=== PATIENT | female | born 1950 | race Caucasian/White ===

== ENCOUNTER → 2016-08-20 | Outpatient (CLI) | payer MEDICARE ==
[2016-08-20 11:55] LABS: Blood Urea Nitrogen 20 mg/dL (7-17); Non-African American GFR(MDRD) >60 (>60 ml/min/1.73 sqM)
--- NOTE | 2016-08-20 13:21 | CT ---
EXAMINATION TYPE: CT chest w con DATE OF EXAM: 08/20/2016 1:03 PM COMPARISON: NONE HISTORY: Cough CT DLP: 585 mGycm Automated exposure control for dose reduction was used. CONTRAST: CT scan of the chest is performed with IV Contrast, patient injected with 100 mL of Omnipaque 300. FINDINGS: There is some scarring within the right middle lobe. There is mild atelectatic change at th e lung bases. There is 2.1 x 0.9 x 1.3 cm masslike density in the lateral basal segment of the left l ower lobe. There is no significant axillary, internal mammary, mediastinal or hilar adenopathy. There is no pleu ral or pericardial fluid. The heart is not enlarged. Within the abdomen, there is mild fatty infiltration of the liver. Visualized portions of the upper a bdomen are otherwise unremarkable. There is dextroscoliosis present. There is degenerative disc disease and hypertrophic spondylosis wit hin the dorsal spine. IMPRESSION: 1. 2.1 CM MASSLIKE DENSITY IN THE LATERAL BASAL SEGMENT OF THE LEFT LOWER LOBE. THIS MAY REPRESENT CO NSOLIDATION. FOLLOW-UP TO RESOLUTION WOULD BE SUGGESTED. 2. MILD FATTY INFILTRATION OF THE LIVER. 3. DEXTROSCOLIOSIS AND DEGENERATIVE CHANGES WITHIN THE SPINE.
== END | disposition home or self-care (01) ==
LOC: RADCTMAIN 10:56
PROVIDERS: ATTEND Family Medicine
DX: J98.4 Other disorders of lung (principal)
CPT/HCPCS: 82565; 84520; 71260; 36415; Q9967

== ENCOUNTER → 2016-10-15 | Outpatient (CLI) | payer MEDICARE ==
[2016-10-15 10:50] LABS: Blood Urea Nitrogen 26 mg/dL (7-17); Non-African American GFR(MDRD) >60 (>60 ml/min/1.73 sqM)
--- NOTE | 2016-10-15 11:30 | CT ---
EXAMINATION TYPE: CT chest w con DATE OF EXAM: 10/15/2016 11:14 AM COMPARISON: 08/20/2016 HISTORY: Previous abnormal exam of lung mckeon CT DLP: 314.10 mGycm, Automated exposure control for dose reduction was used. CONTRAST: Performed injected with 100 ml mL of Omnipaque 300. TECHNIQUE: Axial images were obtained at 5 mm thick sections. Reconstructed images are reviewed on [employer] computer in the coronal plane. FINDINGS: Portion of the thyroid visualized is normal. A 0.7 cm nodule may be at the posterior lateral left lung base. Series 4 image 40. Atelectasis could be considered within the differential. This area was present in August 2016. No enlarged mediastinal or hilar adenopathy is evident. The ascending aorta diameter at the level o f the main pulmonary artery is 3.8 cm. The main pulmonary artery diameter at the bifurcation is 2.[address] sections are obtained through the upper abdomen. Abdomen is essentially unremarkable. There is a scoliosis present. IMPRESSIONS: 1. 0.7 cm nodule suspected at the posterior lateral left lung base was present in August 2016. No i nterval increase in size is evident. Continued monitoring is recommended. Neoplasm is not excluded. F ollow-up CT chest study in 3 months is recommended.
== END | disposition home or self-care (01) ==
LOC: RADCTMAIN 10:02
PROVIDERS: ATTEND Family Medicine
DX: R91.8 Other nonspecific abnormal finding of lung field (principal)
CPT/HCPCS: 82565; 84520; 71260; 36415; Q9967

== ENCOUNTER → 2017-01-16 | Outpatient (CLI) | payer MEDICARE ==
--- NOTE | 2017-01-16 16:15 | PE ---
EXAMINATION TYPE: PET CT fusion skull to thigh DATE OF EXAM: 01/16/2017 CLINICAL HISTORY: Solitary pulmonary nodule, recent abnormal CT. TECHNIQUE: Following the intravenous administration of 13.1 mCi of F-18 FDG, whole body images are performed from the skull base to the midthigh. Images are reviewed on the computer in the coronal, a xial, and sagittal planes. Reconstructed rotating images are created on independent workstation and reviewed on the computer. A non-contrast CT is performed in conjunction with the PET scan. COMPARISON: CT chest October 15, 2016. CT abdomen pelvis October 23, 2015 FINDINGS: SKULL BASE AND NECK: No suspicious hypermetabolic uptake in the neck is seen. CHEST, MEDIASTINUM, AND HILAR REGION: No suspicious hypermetabolic uptake in the thorax with particul ar attention to the slightly more prominent rounded subcentimeter nodular area left lung base at site of linear scarring or atelectasis in the left lower lobe on axial image 103. ABDOMEN AND PELVIS: There is focal increased uptake in right-sided colon Could reflect inflammatory o r infectious process at this level. No suspicious wall thickening is seen. Consider colonoscopy corre lation if has not been performed in last 3 years due to asymmetric hypermetabolic uptake to exclude p olyp if there is no infectious or inflammatory correlate. Otherwise no suspicious hypermetabolic upta ke is seen in the abdomen or pelvis. Normal-appearing appendix incidentally noted. OSSEOUS STRUCTURES: No suspicious hypermetabolic uptake is seen in osseous structures. OTHER CT: There is mild diffuse age-related cerebral atrophy in the visualized inferior brain parenchyma. Slightly more prominent right axillary lymph nodes with mild hypermetabolic uptake are subcentimeter in size with retained fatty hilum, correlate for inflammatory process or infection at this level. Pectus excavatum deformity is redemonstrated. Ascending aorta measures up to 3.7 cm in diameter on axial image 88 unchanged from prior study. Mild cardiomegaly is redemonstrated. There are diverticula scattered throughout the visualized colon. There is small to moderate-sized fat-containing left periumbilical hernia on axial image 158 redemons trated. Underlying S-shaped scoliosis is redemonstrated. Straightening of spine is seen on sagittal images. Multilevel spurring and disc space narrowing is redemonstrated. IMPRESSION: No suspicious hypermetabolic uptake is seen to suggest pulmonary malignancy. Attention to right axilla and right colon as detailed above.
== END | disposition home or self-care (01) ==
LOC: RADPETMAIN 10:16
PROVIDERS: ATTEND Family Medicine
DX: R91.1 Solitary pulmonary nodule (principal)
CPT/HCPCS: 78815; A9552

== ENCOUNTER → 2018-04-28 | Outpatient (CLI) | payer MEDICARE ==
--- NOTE | 2018-04-28 10:00 | CT ---
EXAMINATION TYPE: CT chest w con DATE OF EXAM: 04/28/2018 COMPARISON: 10/15/2016 and August 20, 2015 HISTORY: Follow up known lung nodule. CT DLP: 353.8 mGycm Automated exposure control for dose reduction was used. CONTRAST: CT scan of the chest is performed with IV Contrast, patient injected with 80 mL of Isovue 300. FINDINGS: LUNGS: Stable left lower lobe nodular density measuring 6.6 mm versus 6.6 mm previously. Linear paren chymal scarring at the lung bases bilaterally. MEDIASTINUM: There are no greater than 1 cm hilar or mediastinal lymph nodes. No pericardial effusi on is seen. Thoracic aorta is of normal caliber. The heart is not enlarged. UPPER ABDOMEN: Fatty hepatic infiltration is noted. OTHER: No additional significant abnormality is seen. IMPRESSION: 1 stable left lower lobe pulmonary nodule over a two-year timeframe and can be presumed to be benign.
== END | disposition home or self-care (01) ==
LOC: RADCTMAIN 07:58
PROVIDERS: ATTEND Family Medicine
DX: R91.1 Solitary pulmonary nodule (principal)
CPT/HCPCS: 82565; 84520; 71260; 36415; Q9967

== ENCOUNTER → 2021-02-24 | Outpatient (CLI) | payer MEDICARE ==
[2021-02-24 13:01] LABS: HCT 42.5 % (34.0-46.0); HGB 14.1 gm/dL (11.4-16.0); MCH 32.5 pg (25.0-35.0); MCHC 33.1 g/dL (31.0-37.0); MCV 98.2 fL (80.0-100.0); Macrocytosis Slight; Mean Platelet Volume 8.3; Platelet Count 269 k/uL (150-450); RBC 4.33 m/uL (3.80-5.40); RDW 15.5 % (11.5-15.5)
[2021-02-24 13:29] LABS: Potassium 5.1 mmol/L (3.5-5.1)
== END | disposition home or self-care (01) ==
LOC: LABPAT 12:08
PROVIDERS: ATTEND Internal Medicine Interventional Cardiology
DX: Z01.812 Encounter for preprocedural laboratory examination (principal); I25.2 Old myocardial infarction
CPT/HCPCS: 36415; 80051; 82565; 84520; 85027

== ENCOUNTER 2021-03-03 11:07 | Day surgery (SDC) | payer MEDICARE ==
[2021-02-26 11:59] VITALS: BMI 29.2
[2021-03-03] MEDS ORDERED: SODIUM CHLORIDE 0.9% 1,000 ML in EMPTY BAG 1 BAG IV ONE (11:19)
[2021-03-03] MEDS ORDERED: ASPIRIN 325 MG TAB PO STA (11:19)
[2021-03-03] MEDS ORDERED: HEPARIN SODIUM,PORCINE 10,000 UNIT in SODIUM CHLORIDE 0.9% 1,000 ML IRRIGATION PRN (11:19)
[2021-03-03] MEDS ORDERED: HEPARIN SODIUM,PORCINE 2,500 UNIT in SODIUM CHLORIDE 0.9% 250 ML IRRIGATION PRN (11:19)
[2021-03-03] MEDS ORDERED: NITROGLYCERIN SL TABS 0.4 MG TAB SUBLINGUAL PRN (11:19)
[2021-03-03] MEDS ORDERED: ATORVASTATIN 80 MG TAB PO STA (11:19)
[2021-03-03] MEDS ORDERED: ALPRAZolam 0.5 MG TAB PO PRN (11:19)
[2021-03-03] MEDS ORDERED: ALPRAZolam 0.25 MG TAB PO PRN (11:19)
[2021-03-03] MEDS ORDERED: SODIUM CHLORIDE 0.9% 1,000 ML IV ONE (11:26)
[2021-03-03 11:33] VITALS: RESP 16; TEMP 98.4
[2021-03-03] MEDS ORDERED: HEPARIN SODIUM 1,000 UN/ML (10ML VL) ONE (12:16)
[2021-03-03] MEDS ORDERED: VERAPAMIL 2.5 MG/ML 2 ML AMP ONE (12:16)
[2021-03-03] MEDS ORDERED: LIDOCAINE 1% INJ 10MG/ML (20 ML MDV) ONE (12:16)
[2021-03-03] MEDS: MIDAZOLAM 2 MG/2 ML VIAL IVP ONE ×2 (12:33→12:35)
[2021-03-03] MEDS ORDERED: LIDOCAINE 1% INJ 10MG/ML (20 ML MDV) SQ ONE (12:34)
[2021-03-03] MEDS ORDERED: VERAPAMIL SYRINGE (5 MG/10 ML) INTRAARTER ONE (12:36)
[2021-03-03] MEDS ORDERED: HEPARIN SODIUM 1,000 UN/ML (10ML VL) IV ONE (12:40)
--- NOTE | 2021-03-03 12:55 | ECHOF ---
Referral Reason:aortic stenosis and high right pressures. MEASUREMENTS -------- HEIGHT: 152.4 cm WEIGHT: 68.0 kg BP: IVSd: 1.6 cm (0.6 - 1.1) LVIDd: 3.4 cm (3.9 - 5.3) LVPWd: 1.4 cm (0.6 - 1.1) EDV(Teich): 47 ml IVSs: 1.8 cm LVIDs: 2.1 cm LVPWs: 2.1 cm %IVS Thck: 11 % ESV(Teich): 15 ml EF(Teich): 68 % %FS: 37 % SV(Teich): 32 ml RVIDd: 3.3 cm (< 3.3) RA Diam: 4.1 cm LALs A4C: 5.0 cm LAAs A4C: 16.2 cm LAESV A-L A4C: 45 ml LAESV MOD A4C: 40 ml LALs A2C: 4.9 cm LAAs A2C: 17.6 cm LAESV A-L A2C: 54 ml LAESV MOD A2C: 51 ml LAESV(A-L): 50 ml LAESV Index (A-L): 30.14 ml/m Ao Diam: 2.9 cm (2.0 - 3.7) AV Cusp: 0.9 cm (1.5 - 2.6) MV E [place]: 0.59 m/s MV DecT: 210 ms MV Dec [place]: 2.8 m/s MV A [place]: 0.94 m/s MV E/A Ratio: 0.63 MV PHT: 61 ms LVOT Vmax: 0.88 m/s LVOT maxP.11 mmHg AV Vmax: 4.58 m/s AV maxP.92 mmHg AV Vmax: 4.67 m/s AV Vmean: 3.60 m/s AV maxP.54 mmHg AV meanP.03 mmHg AV Env.Ti: 349 ms AV VTI: 125.4 cm TR Vmax: 2.79 m/s TR maxP.17 mmHg RAP: 5.00 mmHg RVSP: 36.17 mmHg FINDINGS -------- Sinus rhythm. This was a technically adequate study. The left ventricular size is normal. There is moderate concentric left ventricular hypertrophy. O verall left ventricular systolic function is normal with, an EF between 55 - 60 %. The right ventricle is mildly enlarged. LA is midly dilated 29-33ml/m2. The right atrial size is normal. Interatrial and interventricular septum intact. Trace amount of aortic regurgitation. There is severe aortic stenosis present. Peak/mean gradien t across the Aortic Valve is 87.54mmHg / 56.03mmHg. There is trace mitral regurgitation. Mild tricuspid regurgitation present. There is mild pulmonary hypertension. The right ventricular systolic pressure, as measured by Doppler, is 36.17mmHg. There is no pulmonic regurgitation present. The aortic root size is normal. IVC Not well visulized. There is no pericardial effusion. TDS CONCLUSIONS -------- 1. The left ventricular size is normal. 2. There is moderate concentric left ventricular hypertrophy. 3. Overall left ventricular systolic function is normal with, an EF between 55 - 60 %. 4. The right ventricle is mildly enlarged. 5. LA is midly dilated 29-33ml/m2. 6. Trace amount of aortic regurgitation. 7. There is severe aortic stenosis present. 8. Peak/mean gradient across the Aortic Valve is 87.54mmHg / 56.03mmHg. 9. There is trace mitral regurgitation. 10. Mild tricuspid regurgitation present. 11. There is mild pulmonary hypertension. 12. The right ventricular systolic pressure, as measured by Doppler, is 36.17mmHg. STUDIO TECHNICIAN VIDEO OPERATOR: Awa Nava RDCS
[2021-03-03] MEDS ORDERED: IOPAMIDOL-370 100ML BTL INJ ONE (13:00)
[2021-03-03] MEDS ORDERED: SODIUM CHLORIDE 0.9% 1,000 ML IV SCH (13:00)
[2021-03-03 18:40] VITALS: BP 106/62; PULSE 60
--- NOTE | 2021-03-03 20:49 | CC ---
CARDIAC CATHETERIZATION REPORT DATE OF SERVICE: 03/03/2021 PROCEDURE: Left heart catheterization, coronary angiography. PERFORMED BY: Dr. Rufus Coulter. Moderate conscious sedation time was 28 minutes. Patient was administered Versed. Oxygen saturation, hemodynamics and EKG were monitored closely. CLINICAL INFORMATION: Mrs. Ariana Clark is a 70-year-old lady with hypertension, rheumatoid arthritis, hypercholesterolemia and severe aortic stenosis. She was referred to me by Dr. Gregorio after an echo by PCP's office revealed significant severe aortic stenosis. The patient was advised coronary angiography and repeat echo. Echo performed today revealed that aortic stenosis was severe with a mean gradient of more than 40 mmHg. LV function was well preserved. There was mild pulmonary hypertension. She was advised coronary angiography and subsequently will be evaluated by the structural heart disease team and Dr. Roque will see her today. PROCEDURE NOTE: Under local anesthesia and strict aseptic precautions, a 6-Australian introducer was placed in the right radial artery. Using JL3.5 and JR4 catheters, I performed selective coronary angiography and also tried to gain access into the LV through with the right catheter, but I was unsuccessful, given heavy calcification. Therefore LV pressures were not obtained. The sheath was taken out and TR band applied as per protocol, with saturation in the fingers of the right hand of 100%. The patient tolerated procedure well without complications. CARDIAC CATHETERIZATION FINDINGS: CORONARY ANGIOGRAPHY FINDINGS: RIGHT CORONARY ARTERY: Technically a nondominant vessel, small in caliber and distribution, supplies a limited amount of myocardium. No significant disease in the RCA, which is small in caliber and supplies a limited amount of myocardium. LEFT MAIN CORONARY ARTERY: This hardly exists because it appears the circumflex and LAD are coming from almost separate origins. The left main is extremely small and immediately divides into 2 branches. There is really no significant disease. LEFT ANTERIOR DESCENDING CORONARY ARTERY: Good-caliber vessel extends along the anterior wall. No significant disease. Minor irregularities. Gives off a lot of septal branches, one diagonal branch. No significant disease in a good-caliber, good- distribution LAD. LEFT POSTERIOR CIRCUMFLEX CORONARY ARTERY: Very dominant vessel, gives off a single obtuse marginal proximally and then distally gives off PDA and PLV branches, both of which supply a sizable amount of myocardium. No significant disease in the dominant circumflex. LEFT VENTRICULOGRAM: Left ventriculogram was not performed and LV pressures were not checked. FINAL IMPRESSION: This patient has a left-dominant system, small, disease-free RCA. No significant disease in the LAD or circumflex. LV pressures were not obtained. LAD and circumflex almost have separate origins. Findings were discussed with the patient as well as her . She will be evaluated by the structural heart team in the next 2 weeks. She has severe aortic stenosis by echo. The patient will be discharged later on today after seen by Dr. Roque. I have left a message for Dr. Gregorio in this regard. MMODL / IJN: [id number] /
== END 2021-03-03 18:10 | disposition home or self-care (01) ==
LOC: CATHCVL 11:07
PROVIDERS: ATTEND Internal Medicine Interventional Cardiology
DX: I35.0 Nonrheumatic aortic (valve) stenosis (principal); I27.20 Pulmonary hypertension, unspecified; I10 Essential (primary) hypertension; E78.5 Hyperlipidemia, unspecified; E78.00 Pure hypercholesterolemia, unspecified; M19.90 Unspecified osteoarthritis, unspecified site
CPT/HCPCS: 93454; 93306; C1894 ×2; C1769 ×2; J2250; J2001; J1644; Q9967

== ENCOUNTER 2021-03-12 10:46 | Day surgery (SDC) | payer MEDICARE ==
[2021-03-05 14:19] VITALS: BMI 28.5
[2021-03-12 11:17] VITALS: TEMP 98
[2021-03-12] MEDS ORDERED: SODIUM CHLORIDE 0.9% 500 ML 500 ML IV ONE (11:17)
[2021-03-12] MEDS ORDERED: fentaNYL (PF) 50 MCG/ML 2 ML AMP ONE (12:53)
[2021-03-12] MEDS ORDERED: BENZOCAINE SPRAY 1 CAN TOPICAL ONE (13:03)
[2021-03-12] MEDS: fentaNYL (PF) 50 MCG/ML 2 ML AMP IV ONE ×2 (13:04→13:14)
[2021-03-12] MEDS: MIDAZOLAM 2 MG/2 ML VIAL IV ONE ×2 (13:04→13:07)
[2021-03-12] MEDS ORDERED: MIDAZOLAM 2 MG/2 ML VIAL IV ONE (13:14)
[2021-03-12] MEDS ORDERED: FLUMAZENIL 0.1 MG/ML 5 ML VIAL IVP ONE (13:37)
--- NOTE | 2021-03-12 13:51 | ECHOT ---
TRANSESOPHAGEAL ECHOCARDIOGRAM DATE OF SERVICE: March 12, 2021 PERFORMING PHYSICIAN: Murtaza Roque M.D. PROCEDURE PERFORMED: Transesophageal echocardiogram. INDICATION: Aortic stenosis. COMPLICATION: None. LEVEL OF SEDATION: Moderate with sedation length of 15 minutes. PROCEDURE DESCRIPTION: After obtaining an informed consent, explaining the procedure, benefits, risks, complications and alternatives, the patient was brought to the transesophageal echocardiogram suite. A pulse oximetry and heart rate monitors were attached to the patient prior to the procedure. The patient's throat was sprayed using lidocaine locally. Following that, the patient was turned into left lateral position. A bite guard was placed and the patient was then sedated with the above doses of Versed and fentanyl in divided doses. Following that, the transesophageal echocardiogram probe was advanced through the bite guard into the mid esophagus where 2-D echocardiogram images as well as color Doppler images of various cardiac structures were obtained. We evaluated the interatrial septum using 2-D echocardiogram, color Doppler, and contrast study. The procedure was completed. There were no complications. The procedure was performed using the 2D echo as well as color Doppler and pulse Doppler, and continuous-wave Doppler. FINDINGS: The left ventricular dimension and systolic function appeared to be within normal limits. The ejection fraction appeared to be in the range from 55%. Right ventricle appeared to be within normal limits for dimension and function. The left atrium appeared to be dilated. The aortic valve is questionable to be bicuspid valve with evidence of severe aortic stenosis with a mean gradient of 49 mmHg. The mitral valve seems to be mildly thickened with mild MR only. There was mild tricuspid regurgitation seen. The aortic root appeared to be slightly dilated under 3.8 cm. CONCLUSION: 1. Normal left ventricular dimension and systolic function. 2. Normal right ventricular dimension and systolic function. 3. Questionable bicuspid aortic valve. The valve is extremely calcified. There is severe aortic stenosis with a mean gradient of 48 mmHg. 4. Thickened mitral valve leaflets with mild MR. 5. Normal tricuspid valve and pulmonic valve. 6. No evidence of pericardial effusion. MMODL / IJN: [id number] /
[2021-03-12 14:35] VITALS: RESP 16
[2021-03-12 14:59] VITALS: BP 142/85; PULSE 67
== END 2021-03-12 15:03 | disposition home or self-care (01) ==
LOC: CATHCVL 10:46
PROVIDERS: ATTEND Internal Medicine Interventional Cardiology
DX: I35.0 Nonrheumatic aortic (valve) stenosis (principal); I10 Essential (primary) hypertension; E78.5 Hyperlipidemia, unspecified; Z82.49 Family history of ischemic heart disease and other diseases of the circulatory system; Z79.899 Other long term (current) drug therapy; Z79.82 Long term (current) use of aspirin
CPT/HCPCS: 93312; 93320; 93325; J2250; J3010

== ENCOUNTER → 2021-03-13 | Outpatient (CLI) | payer MEDICARE ==
--- NOTE | 2021-03-03 15:37 | P.CRDCN ---
History of Present Illness Consult date: 03/03/21 Chief complaint: Evaluation for transcutaneous aortic valve replacement History of present illness: This is a pleasant 70-year-old female patient who sees Dr. Coulter in the office regularly with a past medical history significant for aortic stenosis as well as history of "heart attack" with unknown details as well as history of hypertension and dyslipidemia. The patient follows with Dr. Coulter irregularly the office. She was referred initially by her primary care physician for further evaluation of shortness of breath. Subsequently Dr. Coulter performed transthoracic echocardiogram and that revealed normal left ventricular systolic function was evidence of severe aortic stenosis with a mean gradient more than 15 mmHg. She underwent today a heart catheterization which revealed mild nonobstructive coronary artery disease. I did review the echocardiogram as well as heart catheterization before interviewed the patient. The patient was interviewed here at the hospital. She described shortness of breath once that she pushed herself above the limits but no shortness of breath with everyday activities. She stated that sometimes with vacuuming she is experiencing the shortness of breath most of the time. She denies any symptoms of chest pain or chest discomfort or any dizziness or lightheadedness and no presyncope or syncope. On examination she does have a harsh systolic murmur consistent with aortic stenosis but she still have S2 preserved somewhat. She is in process of seeing Shannon miller the nurse practitioner for the valve the clinic to undergo a workup before she will be seen at the private clinic for further evaluation as well. From the cardiac standpoint of view, the patient is a stable to go home and follow-up with Dr. Coulter as an outpatient and also to follow up at the valve clinic. Past Medical History Past Medical History: Asthma, Hyperlipidemia, Hypertension, Myocardial Infarction ([place]), Osteoarthritis (OA), Rheumatoid Arthritis (RA) Last Myocardial Infarction Date:: 1999 History of Any Multi-Drug Resistant Organisms: None Reported Past Surgical History: Orthopedic Surgery, Tonsillectomy Additional Past Surgical History / Comment(s): Colonoscopy Past Anesthesia/Blood Transfusion Reactions: No Reported Reaction Past Alcohol Use History: Occasional Past Drug Use History: None Reported - Past Family History Father Family Medical History: Cancer Medications and Allergies Home Medications Medication Instructions Recorded Confirmed Type Calcium Carbonate [Calcium] 600 mg PO DAILY 01/07/16 02/26/21 History Folic Acid 0.4 mg PO DAILY 01/07/16 02/26/21 History Meloxicam [Mobic] 7.5 mg PO WESA 01/07/16 02/26/21 History Metoprolol Tartrate [Lopressor] 50 mg PO HS 01/07/16 02/26/21 History Montelukast Chew [Singulair Chew] 5 mg PO DAILY 01/07/16 02/26/21 History Multivitamins, Thera [Multivitamin] 1 tab PO DAILY 01/07/16 02/26/21 History Omeprazole 20 mg PO DAILY 01/07/16 02/26/21 History Simvastatin [Zocor] 20 mg PO HS 01/07/16 02/26/21 History metHOTREXate sodium [Methotrexate] 10 mg PO SA 01/07/16 02/26/21 History Aspirin [Adult Low Dose Aspirin EC] 81 mg PO DAILY 02/26/21 02/26/21 History Benazepril [Lotensin] 10 mg PO DAILY 02/26/21 02/26/21 History Cyanocobalamin (Vitamin B-12) 1,000 mcg PO DAILY 02/26/21 02/26/21 History [Vitamin B-12] Fiber. 1 tab PO DAILY 02/26/21 02/26/21 History Fluticasone Propionate 220 Mcg 2 puff INHALATION DAILY 02/26/21 02/26/21 History [Flovent 220 Mcg Inhaler (Mhu)] Allergies Allergy/AdvReac Type Severity Reaction Status Date / Time No Known Allergies Allergy Verified 02/26/21 12:00 Physical Exam - Constitutional General appearance: no acute distress - Respiratory Respiratory: bilateral: diminished - Cardiovascular Rhythm: regular Heart sounds: normal: S1, S2 Abnormal Heart Sounds: systolic murmur Assessment and Plan Assessment: Assessment #1 severe symptomatic aortic stenosis #2 shortness of breath consistent with NYHA class II symptoms #3 mild nonobstructive coronary artery disease #4 hypertension #5 dyslipidemia Plan Continue the current medical regimen The patient is a stable to go home Obtain the workup before the patient will be seen in the vascular clinic Further recommendation to follow
[2021-03-13 10:42] LABS: Appearance,Urine Clear (Clear); Bilirubin,Urine Negative (Negative); Blood,Urine Negative (Negative); Color,Urine Yellow; Glucose,Urine (UA) Negative (Negative); Ketones,Urine Negative (Negative); Leukocyte Esterase,Urine Small (Negative); Mucus,Urine Rare /hpf; Nitrite,Urine Negative (Negative); Protein,Urine Negative (Negative); RBC,Urine <1 /hpf (0-5); Specific Gravity,Urine 1.014 (1.001-1.035); Squamous Epithelial Cell,Urine 1 /hpf (0-4); Urobilinogen,Urine <2.0 mg/dL (<2.0); WBC,Urine <1 /hpf (0-5)
[2021-03-13 10:54] LABS: INR 0.9 (<1.2); Partial Thromboplastin Time 24.2 sec (22.0-30.0); Prothrombin Time 10.2 sec (9.0-12.0)
[2021-03-13 11:10] LABS: ALT 17 U/L (4-34); AST 30 U/L (14-36); African American GFR (CKD) 62 (>60 ml/min/1.73 sqM); Albumin 3.9 g/dL (3.5-5.0); Albumin/Globulin Ratio 1.2; Alkaline Phosphatase 79 U/L (38-126); Anion Gap 8 mmol/L; Bilirubin,Unconjugated 0.2 mg/dL (0.0-1.1); Blood Urea Nitrogen 23 mg/dL (7-17); Calcium 9.7 mg/dL (8.4-10.2); Carbon Dioxide 28 mmol/L (22-30); Chloride 103 mmol/L (98-107); Globulin 3.3 g/dL; Glucose 78 mg/dL (74-99); Magnesium 2.1 mg/dL (1.6-2.3); Non-African American GFR(CKD) 54 (>60 ml/min/1.73 sqM); Potassium 5.1 mmol/L (3.5-5.1); Sodium 139 mmol/L (137-145); Total Bilirubin 0.4 mg/dL (0.2-1.3); Total Protein 7.2 g/dL (6.3-8.2)
--- NOTE | 2021-03-13 12:54 | CT ---
EXAMINATION TYPE: CT TAVR Planning DATE OF EXAM: 03/13/2021 HISTORY: TAVR planning, aortic stenosis. CT DLP: 1593.7 mGycm Automated Exposure Control for Dose Reduction was Utilized. CONTRAST: CTA scan of the chest, abdomen and pelvis is performed with IV Contrast, patient injected with 125 mL of Isovue 370. COMPARISON: Prior PET/CT January 16, 2017 TECHNIQUE: Helical imaging obtained through the chest, abdomen and pelvis during arterial phase sha nu administration of radiographic contrast intravenously. FINDINGS: See report from [employer] regarding preprocedural planning CHEST: Lower Neck and Thyroid: No significant findings Lungs: Mild bibasilar linear scarring and/or atelectasis Central Airway: No significant findings Pleura: No significant findings Pulmonary Arteries: No significant findings Heart and Pericardium: Heart size upper limits of normal. Dense calcification at level of the aortic valve. Ascending aortic aneurysm up to 3.8 cm. Tortuous descending aorta with moderate peripheral sakina que. Lymph Nodes: No significant findings Mediastinum & Esophagus: No significant findings ABDOMEN/PELVIS: Please note arterial phase of the imaging limits detailed evaluation of the solid abdominal organs. Liver: No significant findings Spleen: No significant findings Kidneys: No significant findings Adrenal Glands: No significant findings Pancreas: No significant findings Gallbladder: Dependent small gallstones within gallbladder. Bowel and Mesentery: Scattered colonic diverticula greatest at level of sigmoid colon. Normal-appeari ng appendix. Lymph Nodes: No significant findings Urinary Bladder: No significant findings Pelvic Organs: No significant findings Other: Moderate-sized fat-containing umbilical hernia. Suspect significant stenosis at origin of leonor iac artery on sagittal images. Underlying marked rotary scoliosis most prominent mid thoracic spine redemonstrated. IMPRESSION: Incidental findings as noted above.
--- NOTE | 2021-03-13 16:28 | US ---
EXAMINATION TYPE: US carotid duplex BILAT DATE OF EXAM: 03/13/2021 COMPARISON: Same-day CTA chest study CLINICAL HISTORY: I35.1 Nonrheumatic aortic(valve)insufficiency,I35.0. Presurgical study. EXAM MEASUREMENTS: RIGHT: Peak Systolic Velocity (PSV) cm/sec ----- Right CCA: 87.2 ----- Right ICA: 89.7 ----- Right ECA: 44.7 ICA/CCA ratio: 1.0 RIGHT: End Diastole cm/sec ----- Right CCA: 23.4 ----- Right ICA: 38.0 ----- Right ECA: 0.0 LEFT: Peak Systolic Velocity (PSV) cm/sec ----- Left CCA: 50.1 ----- Left ICA: 100.5 ----- Left ECA: 23.7 ICA/CCA ratio: 2.0 LEFT: End Diastole cm/sec ----- Left CCA: 21.7 ----- Left ICA: 45.9 ----- Left ECA: 0.0 VERTEBRALS (direction of flow): Right Vertebral: Antegrade Left Vertebral: Antegrade Rhythm: Normal Tortuous vessels bilateral making evaluation slightly suboptimal. Mild peripheral plaque right caroti d bulb. The peak systolic velocity measurements in the bilateral internal carotid arteries remain wit hin normal limits. IMPRESSION: No hemodynamically significant stenosis in either internal carotid artery. Criteria for Assigning % of Stenosis / Diameter reduction (Estimation based on the indirect measurements of the internal carotid artery velocities (ICA PSV). 1. Normal (no stenosis)=ICA PSV < 125 cm/s: ratio < 2.0: ICA EDV<40 cm/s. 2. Less than 50% stenosis=ICA PSV < 125 cm/s: ratio < 2.0: ICA EDV<40 cm/s. 3. 50 to 69% stenosis=ICA PSV of 125 to 230 cm/s: ration 2.0 ? 4.0: ICA EDV 40-100 cm/s. 4. Greater than 70% stenosis to near occlusion= ICA PSV > 230 cm/s: ratio > 4.0: ICA EDV > 100 cm/s. 5. Near occlusion= ICA PSV velocities may be low or undetectable: variable ratio and ICA EDV. 6. Total occlusion=unable to detect flow.
[2021-03-13 19:19] LABS: Basophils # (A) 0.09 X 10*3/uL (0.00-0.10); Basophils % (A) 1.2 %; Eosinophils # (A) 0.41 X 10*3/uL (0.04-0.35); Eosinophils % (A) 5.4 %; HCT 40.5 % (37.2-46.3); HGB 12.8 g/dL (12.0-15.0); Lymphocytes # (A) 0.86 X 10*3/uL (0.90-5.00); Lymphocytes % (A) 11.2 %; MCH 32.3 pg (27.0-32.0); MCHC 31.6 g/dL (32.0-37.0); MCV 102.3 fL (80.0-97.0); Mean Platelet Volume 10.6 fL (9.5-12.2); Monocytes # (A) 0.86 X 10*3/uL (0.20-1.00); Monocytes % (A) 11.2 %; Neutrophils % (A) 70.6 %; Platelet Count 256 X 10*3/uL (140-440); RBC 3.96 X 10*6/uL (4.10-5.20); RDW 15.9 % (11.5-14.5); WBC 7.65 X 10*3/uL (4.50-10.00)
[2021-03-13 21:29] LABS: Hemoglobin A1C 5.3 % (4.0-6.0)
[2021-03-14 04:06] LABS: Chol/HDL Ratio 3.27; LDL Cholesterol,Calculated 81.4 mg/dL (0.0-131.0); VLDL Calculation 34.6 mg/dL (5.00-40.00)
--- NOTE | 2021-03-20 08:45 | ECHOF ---
Referral Reason:I35.1 I35.0 MEASUREMENTS -------- HEIGHT: 152.4 cm WEIGHT: 66.2 kg BP: RVIDd: 2.4 cm (< 3.3) IVSd: 1.4 cm (0.6 - 1.1) LVIDd: 3.6 cm (3.9 - 5.3) LVPWd: 1.4 cm (0.6 - 1.1) IVSs: 1.8 cm LVIDs: 2.1 cm LVPWs: 1.9 cm LAESV Index (A-L): 30.12 ml/m Ao Diam: 3.0 cm (2.0 - 3.7) AV Cusp: 1.0 cm (1.5 - 2.6) MV EXCURSION: 13.550 mm (> 18.000) MV EF SLOPE: 56 mm/s (70 - 150) EPSS: 0.4 cm MV E Liborio: 0.62 m/s MV DecT: 314 ms MV A Liborio: 0.98 m/s MV E/A Ratio: 0.63 AV maxP.32 mmHg AV meanP.51 mmHg RAP: 5.00 mmHg RVSP: 16.12 mmHg FINDINGS -------- Sinus rhythm. This was a technically adequate study. The left ventricular size is normal. There is moderate concentric left ventricular hypertrophy. O verall left ventricular systolic function is normal with, an EF between 55 - 60 %. The right ventricle is normal in size. LA is midly dilated 29-33ml/m2. The right atrial size is normal. Interatrial and interventricular septum intact. There is no evidence of aortic regurgitation. There is severe aortic stenosis present. Peak/mean gradient across the Aortic Valve is 103.32mmHg / 74.51mmHg. Mild mitral annular calcification present. Mild mitral regurgitation is present. Trace tricuspid regurgitation present. There is no evidence of pulmonary hypertension. The right ventricular systolic pressure, as measured by Doppler, is 16.12mmHg. There is no pulmonic regurgitation present. The aortic root size is normal. Normal inferior vena cava with normal inspiratory collapse consistent with estimated right atrial pre ssure of 5 mmHg. There is no pericardial effusion. CONCLUSIONS -------- 1. The left ventricular size is normal. 2. There is moderate concentric left ventricular hypertrophy. 3. Overall left ventricular systolic function is normal with, an EF between 55 - 60 %. 4. LA is midly dilated 29-33ml/m2. 5. There is severe aortic stenosis present. 6. Peak/mean gradient across the Aortic Valve is 103.32mmHg / 74.51mmHg. 7. Mild mitral annular calcification present. 8. Mild mitral regurgitation is present. 9. Trace tricuspid regurgitation present. [employer] RECOV[employer] OPERATOR: Awa Nava RDCS
== END | disposition home or self-care (01) ==
LOC: LABWHC1 09:02
PROVIDERS: ATTEND Thoracic Surgery (Cardiothoracic Vascular Surgery)
DX: Z01.812 Encounter for preprocedural laboratory examination (principal); I35.0 Nonrheumatic aortic (valve) stenosis; N28.9 Disorder of kidney and ureter, unspecified; E87.8 Other disorders of electrolyte and fluid balance, not elsewhere classified; E78.5 Hyperlipidemia, unspecified; E07.9 Disorder of thyroid, unspecified; E11.9 Type 2 diabetes mellitus without complications; R58 Hemorrhage, not elsewhere classified; R35.0 Frequency of micturition; Z79.899 Other long term (current) drug therapy; I35.1 Nonrheumatic aortic (valve) insufficiency
CPT/HCPCS: 94150; 93306; 83880; 80061; 80053; 84443; 82248; 83735; 85025; 85610; 85730; 81001; 87086; 83036; 93880; 71275; 74174; 93005; 36415; Q9967

== ENCOUNTER → 2021-04-15 | Outpatient (CLI) | payer MEDICARE ==
[2021-04-15 11:58] LABS: HCT 40.5 % (34.0-46.0); HGB 13.7 gm/dL (11.4-16.0); MCH 32.8 pg (25.0-35.0); MCHC 33.8 g/dL (31.0-37.0); Mean Platelet Volume 8.1; Platelet Count 304 k/uL (150-450); RBC 4.17 m/uL (3.80-5.40); RDW 15.6 % (11.5-15.5)
[2021-04-15 12:19] LABS: Albumin 4.2 g/dL (3.5-5.0); Calcium 10.2 mg/dL (8.4-10.2); Potassium 5.3 mmol/L (3.5-5.1); Total Bilirubin 0.6 mg/dL (0.2-1.3); Total Protein 7.7 g/dL (6.3-8.2)
[2021-04-15 12:24] LABS: Partial Thromboplastin Time 23.9 sec (22.0-30.0); Prothrombin Time 10.3 sec (9.0-12.0)
== END | disposition home or self-care (01) ==
LOC: LABWHC1 10:43
PROVIDERS: ATTEND Thoracic Surgery (Cardiothoracic Vascular Surgery)
DX: I35.0 Nonrheumatic aortic (valve) stenosis (principal); Z79.01 Long term (current) use of anticoagulants; Z79.899 Other long term (current) drug therapy
CPT/HCPCS: 36415; 80053; 85027; 85610; 85730; 93005

== ENCOUNTER 2021-04-23 06:42 | Inpatient (IN) | payer MEDICARE ==
[~2021-04-23 06:42] MED LIST: ASPIRIN 325 MG TAB PO ONE; ATORVASTATIN 10 MG TAB PO ONE; CLEVIDIPINE BUTYRATE 25 MG in EMPTY BAG 1 BAG IV PRN; CLOPIDOGREL 75 MG TAB PO ONE; ELECTROLYTE-A SOLUTION 1,000 ML with POTASSIUM CHLORIDE 100 MEQ, MAGNESIUM SULFATE 16 M... IV PRN; INSULIN REGULAR 100 UNIT in SODIUM CHLORIDE 0.9% 100 ML IV PRN; LACTATED RINGERS 1,000 ML IV SCH; METOPROLOL TARTRATE 25 MG TAB PO ONE; NITROGLYCERIN-D5W PMX 25 MG/250 ML BTL IV PRN; PROTAMINE SULFATE 250 MG in EMPTY BAG 1 BAG IV PRN; TRANEXAMIC ACID 2,000 MG in SODIUM CHLORIDE 0.9% 80 ML IV PRN
[2021-04-23] MEDS ORDERED: SODIUM CHLORIDE 0.9% 1,000 ML IV ONE (07:10)
[2021-04-23 07:20] LABS: Glucose,Whole Blood 88 mg/dL (75-99)
--- NOTE | 2021-04-23 08:28 | P.ANPRN ---
Procedure Note - Anesthesia - Invasive Line Left Arterial Line Time Out Performed: Yes Date of Procedure: 04/23/21 Time of Procedure: 07:18 Location of Patient: EP Preparation: Sterile Prep, Sterile Dressing Arterial Line Location: Radial Ultrasound Used: Yes Purpose - Visualization and Identification of Vasculature: Yes Needle Guage: 20 G Image Stored and Saved: Yes Narrative: Left radial placed using Seldinger technique
[2021-04-23] MEDS ORDERED: LIDOCAINE 1% INJ 10MG/ML (20 ML MDV) ONE ×2 (08:37→08:43)
[2021-04-23] MEDS ORDERED: VERAPAMIL 2.5 MG/ML 2 ML AMP ONE (08:37)
[2021-04-23] MEDS ORDERED: PROTAMINE SULFATE 10 MG/ML 5 ML VIAL IV ONE (08:43)
[2021-04-23] MEDS ORDERED: GLYCOPYRROLATE 0.2 MG/ML 2 ML VIAL ONE (08:43)
[2021-04-23] MEDS ORDERED: MIDAZOLAM 2 MG/2 ML VIAL ONE (08:43)
[2021-04-23] MEDS ORDERED: PHENYLEPHRINE-0.9% NACL SYG 1,000 MCG/10 ML SYRINGE ONE (08:43)
[2021-04-23] MEDS ORDERED: NEOSTIGMINE 1 MG/ML 10 ML VIAL ONE (08:43)
[2021-04-23] MEDS ORDERED: ROCURONIUM 10 MG/ML (5 ML VIAL) IV ONE (08:43)
[2021-04-23] MEDS ORDERED: PROPOFOL 10 MG/ML 20 ML VIAL IV ONE (08:43)
[2021-04-23] MEDS ORDERED: ePHEDrine SULFATE/0.9% NACL/PF 50 MG/5 ML SYRINGE IV ONE (08:43)
[2021-04-23] MEDS ORDERED: fentaNYL (PF) 50 MCG/ML 2 ML AMP ONE (08:43)
[2021-04-23] MEDS ORDERED: HEPARIN SODIUM,PORCINE 10,000 UNIT/ML 1 ML VIAL ONE (08:43)
[2021-04-23] MEDS ORDERED: IOPAMIDOL-370 125ML BTL INJ ONE (10:30)
[2021-04-23] MEDS ORDERED: SODIUM CHLORIDE 0.9% 1,000 ML IV SCH (11:12)
[2021-04-23] MEDS ORDERED: guaiFENesin-DM 100-10MG/5ML 10 ML CUP PO PRN (11:12)
[2021-04-23] MEDS ORDERED: IPRATROPIUM-ALBUTEROL 3 ML NEB INHALATION PRN (11:12)
[2021-04-23] MEDS ORDERED: GABAPENTIN 100 MG CAP PO PRN (11:12)
[2021-04-23] MEDS ORDERED: SENNOSIDES-DOCUSATE SODIUM 1 EACH TAB PO PRN (11:12)
[2021-04-23] MEDS ORDERED: ONDANSETRON 4 MG/2 ML VIAL IVP PRN (11:12)
--- NOTE | 2021-04-23 11:37 | P.OP ---
Date of Procedure: 04/23/21 Preoperative Diagnosis: Calcific bicuspid aortic stenosis Postoperative Diagnosis: Same Procedure(s) Performed: Transcatheter aortic valve replacement with 29 mm core valve evolute pro plus prosthesis with sentinel cerebral protection Implants: 29 mm core valve Anesthesia: GETA Surgeon: Yoshi Spivey Proposal Consultant #1: Murtaza Roque Proposal Consultant #2: Ab Aguilar Estimated Blood Loss (ml): 100 IV fluids (ml): 2,000 Urine output (ml): 200 Pathology: other (Tissue from sentinel device) Condition: stable Disposition: ICU Indications for Procedure: 71-year-old female who is old for her stated age and quite frail with known calcific bicuspid aortic valvular stenosis which is highly symptomatic. She was evaluated in the high risk valve clinic and felt to be high risk for surgical aortic valve and appropriate for transcatheter aortic valve with the understanding that given the severe calcification bicuspid disease of her aortic valve she was at increased risk for stroke and therefore use of a sentinel cerebral protection system was warranted. Operative Findings: Patient was brought to the superintendent geophysical laboratory and placed supine on the table. Gen. anesthesia was induced. Anterior chest and bilateral groins were sterilely prepped and draped. The right wrist was also sterilely prepped and draped. Initial arterial access was performed under ultrasound guidance in the right radial artery where a 5 mm sheath was placed in the left common femoral artery where a long 6 mm sheath was placed up into the descending thoracic aorta and t he right common femoral artery where a 7-St Helenian sheath was placed. Several attempts were made to puncture the right subclavian vein with a needle and this was unsuccessful. The left femoral vein was punctured with a needle and a 6- St Helenian sheath was placed. 2 Perclose devices were deployed in the right common femoral artery. This was then upsized to an 8-St Helenian sheath. A pigtail catheter was placed through the left femoral arterial sheath and positioned in the non-coronary sinus of Valsalva. The 8-St Helenian sheath on the right was exchanged for a 14-St Helenian sheath over a stiff wire. Temporary venous patient was placed through the left femoral venous sheath and advanced into the right ventricle where good pacing thresholds were obtained. Patient was systemically heparinized and ACT is maintained greater than 250 during the procedure. Through the right radial arterial sheath a 5-St Helenian sees me a 4-St Helenian IM catheter was placed and the left carotid artery was identified and a grand slam wire was advanced well into the left carotid artery. 4-St Helenian IM catheter was removed and the sentinel system was advanced into the left carotid artery without difficulty. The proximal basket was deployed in the left innominate artery and the distal basket was deployed in the left carotid artery. The aortic valve was now crossed with a straight wire and pigtail catheter positioned in the apex of the left ventricle. Transvalvular gradients were obtained. Safari wire was placed in the apex of the ventricle and the pigtail catheter removed. Predilatation of the aortic valve was performed with a 20 mm true balloon under rapid ventricular pacing. 29 evolute pro plus or valve had been loaded on the back table and the valve and delivery system were brought up onto the field. They were checked under fluoroscopy and the 14-St Helenian sheath was exchanged for the core valve delivery system. This was advanced up to the arch of the aorta but we had great difficulty advancing the core valve delivery system through the arch of the aorta. It was pulled back and pigtail catheter placed back in the apex of the ventricle and we exchanged for a Lunderquist wire. This ultimately allowed us to pass the core valve around the arch of the aorta and through the aortic valve. We then re-exchanged back to the Safari wire and positioned the core valve appropriately. It was deployed at levels of 1 on the right and 6 on the left. This was done under rapid ventricular pacing. Following deployment there was clearly under expansion of the valve frame and there was significant aortic insufficiency on echocardiography. Core valve delivery system was removed maintaining the Safari wire in the apex of the ventricle. The delivery system was exchanged for the 14-St Helenian sheath. 24 true balloon was advanced across the core valve and the valve was postdilated under rapid ventricular pacing. Following this we had good frame expansion visually and the HERB demonstrated no evidence of regurgitation upon removal of the balloon and the wire. The sentinel system was now removed and then the heparin was reversed with protamine. Vance system was examined on the back table and there was some tissue present in the baskets and this was sent for pathology. 14-St Helenian sheath was removed and the Perclose devices were deployed with excellent hemostasis. Completion femoral angiography demonstrated no leak. The other 3 sheaths were removed by cardiology and good hemostasis obtained. Patient was extubated and transferred to ICU in stable condition.
[2021-04-23 11:45] LABS: Glucose,Whole Blood 85 mg/dL (75-99)
[2021-04-23 11:54] LABS: Basophils % (A) 0 %; Eosinophils # (A) 0.2 k/uL (0-0.7); Eosinophils % (A) 3 %; HCT 32.3 % (34.0-46.0); Lymphocytes # (A) 0.8 k/uL (1.0-4.8); Lymphocytes % (A) 11 %; MCH 33.1 pg (25.0-35.0); MCHC 33.1 g/dL (31.0-37.0); MCV 99.7 fL (80.0-100.0); Macrocytosis Slight; Mean Platelet Volume 8.1; Monocytes # (A) 0.3 k/uL (0-1.0); Monocytes % (A) 3 %; Neutrophils # (A) 6.3 k/uL (1.3-7.7); Neutrophils % (A) 82 %; Platelet Count 202 k/uL (150-450); RBC 3.24 m/uL (3.80-5.40); RDW 15.2 % (11.5-15.5); WBC 7.7 k/uL (3.8-10.6)
[2021-04-23 12:01] LABS: INR 1.1 (<1.2); Partial Thromboplastin Time 29.2 sec (22.0-30.0); Prothrombin Time 11.3 sec (9.0-12.0)
--- NOTE | 2021-04-23 12:01 | P.PCN ---
Date of Procedure: 04/23/21 Operative Findings: Transcatheter Aoritc Valve Replacement Operative report PROCEDURE PERFORMED: 1. Percutaneous Aortic Valve Implantation using a 29 mm Core-Valve Evolut-Pro Plus. 2. Transesophageal echocardiography (performed by anesthesia) 3. Ultrasound guided access and repair of right femoral artery access site by Perclose closure device. 4. Placement of temporary pacemaker wire. 5. Aortic root angiography 6. Placement of the [place]ordo embolic protection device. INDICATIONS: This is a 71- year-old with a history of severe symptomatic aortic valve stenosis. PERFORMING PHYSICIANS: 1. Ab Aguilar DO Interventional Cardiology 2. Murtaza Roque MD Interventional Cardiology. 3. Yoshi Ríos MD, Cardiothoracic Surgeon. 4. Lauri Saucedo MD Proctoring Interventional cardiology SEDATION: General anesthesia provided by anesthesia, see separate note APPROACH: Bilateral femoral artery via percutaneous approach PROCEDURE DESCRIPTION: The patient was discussed at valve clinic with multidisciplinary approach with cardiothoracic surgeon as well as wire bound box machine operator and thought better treated with TAVR. Risks, benefits, and alternatives of the procedure had been explained to the patient who understood the risks and agreed to proceed. After consents were obtained, patient was brought to the transcatheter aortic valve implantation room in the cardiac farm labor contractor and general anesthesia was provided by the anesthesiologist (see separate report). Once full body sterile prep was performed, the left common femoral vein was cannulated using micropuncture technique and the micropuncture wire passed easily then a place a 6-Montserratian sheath in the left common femoral vein. Subsequently transvenous pacer was advanced under fluoroscopy guidance to the RV apex.. Pacing threshholds were checked and deemed appropriate. Next the left femoral artery waw accessed using a modified Seldinger technique, ultrasound guidance and micropuncture technique. A 6 Montserratian Rabi sheath was placed in the left femoral artery. Next, a 6-Montserratian pigtail catheter was advanced into the aorta and positioned in the aortic root, aortic root angiography was performed to determine optimal deployment angle. The right femoral artery was accessed using modified Seldinger technique, micropuncture technique and under direct ultrasound guidance. Next preclose technique was performed using a 0.35 Perclose. Next a 0.035 Lunderquist wire was placed in the Aorta via a pigtail catheter. Subsequently we placed a 14- Montserratian sheath under fluoroscopy guidance over the stiff wire. Next a 6F- AL1 catheter was advanced over a wire to the aortic root. A straight wire was advanced through the catheter and used to cross the severely stenotic valve. The AL1 was then exchanged for a 6Fr pigtail catheter and pressure measurements were obtained. The 0.035 Lunderquist wire was then positioned in the apex. Next predilatation of the valve was performed using a 21 mm balloon. Next a 29 mm Corevalve Evolut-Pro Plus was advanced. The valve was then positioned across the aortic valve and confirmed with aortic root angiography. The valve was initially partially deployed however needed repositioning and therefore was recaptured. The valve was then deployed in proper position using slow deployment and with rapid pacing in conjuncture with aortic root angiography and HERB. Subsequently postdilatation was performed using 24 mm balloon. The delivery system was withdrawn back into the arch and an aortic root injection in conjunction with HERB demonstrated a satisfactory result. The preclose Perclose was then deployed in the right femoral artery and hemostasis was achieved. subsequently we confirmed a good hemostasis by selecting the right iliac artery through a rim catheter and injection through the rim catheter to confirm hemos tasis at the right common femoral artery. Subsequently we did close the left groin using a 6-Montserratian Angio-Seal. COMPLICATIONS: None RECOMMENDATIONS: The patient will be monitored in the ICU for hemodynamic and electrical stability. Patient will be on aspirin and Plavix.
[2021-04-23] MEDS: ACETAMINOPHEN TAB 325 MG TAB PO PRN ×3 (12:11→23:09)
--- NOTE | 2021-04-23 12:12 | P.ANPRN ---
Procedure Note - Anesthesia - HERB Intraop Pre Bypass HERB Intraop - Anesthesia Indication: Aortic stenosis Date of Procedure: 04/23/21 Pre-operative Diagnosis: Post-operative Diagnosis: Same Surgeon: Yoshi Spivey Left Ventricle: EF 55 Ejection Fraction: Normal Regional Wall Motion Abnormalities: None Left Ventricle Hypertrophy: Yes R. Ventricle Function: Normal Aortic Valve: Bileaflet AV with fusion R & LCC. Peak 78 mmHg, Mean 59 mmHg, Vmax 4.41 Anatomy: Other Aortic Stenosis: Severe Mitral Stenosis: None Mitral Regurgitation: Trace Tricuspid Stenosis: None Tricuspid Regurgitation: Trace Pulmonic Stenosis: None Pulmonic Regurgitation: None R. Atrial Dilation: No R. Atrial PFO: No L. Atrial Dilation: Yes Aortic Dissection: No Aortic Calcification: Moderate Plural Effusion: None - HERB Intraop Post Bypass HERB Intraop Post Bypass Procedure Performed: TAVR Left Ventricle: 55% Ejection Fraction: Normal Regional Wall Motion Abnormalities: None R. Ventricle Function: Normal Aortic Valve: S/p TAVR and dilation Peak 7.8 mmHg, mean 3.81 mmHg, Vmax 1.4 m/s. No stenosis or perivalvular leak Mitral Valve: Unchanged Tricuspid: Unchanged Pulmonic: Unchanged Aortic Dissection: No
[2021-04-23 12:18] LABS: HGB 10.7 gm/dL (11.4-16.0)
[2021-04-23 12:34] LABS: Albumin 2.7 g/dL (3.5-5.0); Potassium 4.1 mmol/L (3.5-5.1); Total Protein 5.5 g/dL (6.3-8.2)
[2021-04-23 12:35] LABS: Calcium 8.1 mg/dL (8.4-10.2); Magnesium 1.9 mg/dL (1.6-2.3); Total Bilirubin 0.3 mg/dL (0.2-1.3)
--- NOTE | 2021-04-23 12:37 | XR ---
EXAMINATION TYPE: XR chest 1V portable DATE OF EXAM: 04/23/2021 HISTORY: Shortness of breath. COMPARISON: None. TECHNIQUE: Single view of the chest is submitted. FINDINGS: Demonstrated are scattered senescent parenchymal change. Right lower lobe atelectasis is suspected. The heart is mildly enlarged. Stent overlies the lower thoracic region. Hilar and mediastinal structures are within normal limits. Degenerative changes are seen of the dorsal spine. IMPRESSION: 1. Right lower lobe atelectasis or parenchymal scarring. Postoperative stent placement.
[2021-04-23 15:08] LABS: Glucose,Whole Blood 127 mg/dL (75-99)
[2021-04-23] MEDS ORDERED: SODIUM CHLORIDE 0.9% 500 ML 500 ML IV ONE (15:31)
--- NOTE | 2021-04-23 16:59 | P.CNPUL ---
History of Present Illness Consult date: 04/23/21 Chief complaint: ICU management post TAVR History of present illness: 71-year-old here patient is currently in the ICU post TAVR procedure. The patient had history of bicuspid aortic valve stenosis and she was symptomatic and the patient accordingly underwent a TAVR procedure. The patient also had a sentinel cerebral protection system utilized due to her increased risk of having a CVA at time of the procedure. The procedure was performed under the care of Dr. Stacy and Dr. Spivey. Bilateral femoral artery percutaneous approach was utilized. During the procedure, a 22 mm cold valve was deployed, intraoperative HERB was done, ultrasound-guided access and repair of the right femoral artery access was performed by Perclose closure device, a temporary pacemaker was inserted and an aortic root angiography was also performed. The sentinel embolus protection device was also inserted. At this point in time, the patient extubated in the intensive care unit and she is calm and comfortable and she is on 2 L about 2 by nasal cannula with a pulse ox of 97%.. Blood work shows normal electrodes, normal renal function, hemoglobin is at 10.7 and the patient has a negative COVID-19 testing. The chest x-ray postprocedure showed no compli cations. The patient has a right lower lobe atelectasis. Scattered senescent parenchymal changes are also seen. Review of Systems For review of system was done and the positive findings are almost above history of present illness. The patient symptomatic bicuspid aortic valve necessitating a TAVR procedure. Past Medical History Past Medical History: Asthma, GERD/Reflux, Hyperlipidemia, Hypertension, Myocardial Infarction ([place]), Osteoarthritis (OA), Rheumatoid Arthritis (RA) Last Myocardial Infarction Date:: 2000 History of Any Multi-Drug Resistant Organisms: None Reported Past Surgical History: Heart Catheterization, Orthopedic Surgery, Tonsillectomy Additional Past Surgical History / Comment(s): Colonoscopy, left knee surgery, HERB Past Anesthesia/Blood Transfusion Reactions: No Reported Reaction Smoking Status: Never smoker - Past Family History Father Family Medical History: Cancer Medications and Allergies Home Medications Medication Instructions Recorded Confirmed Type Meloxicam [Mobic] 7.5 mg PO WESA 01/07/16 04/23/21 History Montelukast Chew [Singulair chew] 10 mg PO DAILY 01/07/16 04/23/21 History Multivitamins, Thera [Multivitamin 1 tab PO DAILY 01/07/16 04/23/21 History (formulary)] Omeprazole 20 mg PO DAILY 01/07/16 04/23/21 History Simvastatin [Zocor] 20 mg PO HS 01/07/16 04/23/21 History metHOTREXate sodium [Methotrexate] 10 mg PO SA 01/07/16 04/23/21 History Aspirin [Adult Low Dose Aspirin EC] 81 mg PO DAILY 02/26/21 04/23/21 History Benazepril [Lotensin] 10 mg PO DAILY 02/26/21 04/23/21 History Albuterol Sulfate [Proair Hfa] 1 - 2 puff INHALATION Q6HR PRN 04/16/21 04/23/21 History Alendronate Sodium [Fosamax] 70 mg PO Q7D 04/16/21 04/23/21 History CHLORPHEN-HYDROcod 8-10mg/5ml 5 ml PO Q12HR PRN 04/16/21 04/16/21 History [Tussionex] Calcium Carbonate/Vitamin D3 1 tab PO DAILY 04/16/21 04/23/21 History [Calcium 500 mg Chewable Tablet] Fluticasone Propionate [Flovent 2 puff INHALATION BID 04/16/21 04/23/21 History Diskus] Gabapentin [Neurontin] 100 mg PO BID PRN 04/16/21 04/16/21 History Metoprolol Succinate (ER) [Toprol 50 mg PO HS 04/16/21 04/23/21 History Xl] Allergies Allergy/AdvReac Type Severity Reaction Status Date / Time No Known Allergies Allergy Verified 04/16/21 14:20 Physical Exam Vitals: Vital Signs Temp Pulse Pulse Resp BP BP BP 04/23/21 14:00 97.6 F 58 L 18 04/23/21 13:00 53 L 19 04/23/21 12:45 56 L 24 04/23/21 12:30 56 L 15 04/23/21 12:20 59 L 14 04/23/21 12:10 57 L 16 04/23/21 12:00 58 L 19 04/23/21 11:50 62 12 04/23/21 11:40 62 17 109/53 04/23/21 11:30 96.3 F L 65 20 04/23/21 07:17 98.3 F 65 16 154/90 146/82 Pulse Ox 04/23/21 14:00 97 04/23/21 13:00 95 04/23/21 12:45 94 L 04/23/21 12:30 95 04/23/21 12:20 93 L 04/23/21 12:10 93 L 04/23/21 12:00 94 L 04/23/21 11:50 94 L 04/23/21 11:40 94 L 04/23/21 11:30 04/23/21 07:17 99 Intake and Output 04/23/21 04/23/21 04/23/21 06:59 14:59 22:59 Intake Total 170 Balance 170 Intake: IV 170 Sodium Chloride 0.9% 1, 150 000 ml @ 50 mls/hr IV . Q20H ON LICENSE OF [facility] Rx#:[id number] Other: Weight 66.6 kg ABP, PAP, CO, CI - Last 8 Hours Arterial Blood Pressure 117/53 Arterial Blood Pressure 131/56 Arterial Blood Pressure 120/52 Arterial Blood Pressure 114/50 Arterial Blood Pressure 95/43 Arterial Blood Pressure 111/52 Arterial Blood Pressure 111/53 Arterial Blood Pressure 111/53 Arterial Blood Pressure 107/48 Arterial Blood Pressure 106/50 Results - Laboratory Findings CBC and BMP: 04/23/21 11:37 04/23/21 11:37 PT/INR, D-dimer PT 11.3 sec (9.0-12.0) 04/23/21 11:37 INR 1.1 (<1.2) 04/23/21 11:37 Abnormal lab findings: Abnormal Labs 04/15/21 04/23/21 04/23/21 10:57 11:37 11:37 RBC 3.24 L Hgb 10.7 L D Hct 32.3 L Lymphocytes # 0.8 L Chloride 110 H BUN 20 H Glucose 100 H POC Glucose (mg/dL) Calcium 8.1 L AST 37 H Total Protein 5.5 L Albumin 2.7 L Crossmatch See Detail 04/23/21 15:06 RBC Hgb Hct Lymphocytes # Chloride BUN Glucose POC Glucose (mg/dL) 127 H Calcium AST Total Protein Albumin Crossmatch - Diagnostic Findings Chest x-ray: image reviewed Assessment and Plan Plan: 1 TAVR postop day #0. The patient has symptomatically bicuspid aortic valve requiring a TAVR procedure through femoral artery percutaneous approach. The patient underwent intraoperative HERB, placement of a temporary pacemaker and aortic root angiography. [place] embolic protection device was also inserted. 2 chronic bronchial asthma currently inactive in stable 3 rheumatoid arthritis maintained on methotrexate on outpatient basis 4 hypertension 5 osteoporosis 6 history of coronary artery disease 7 hyperlipidemia Plan Chest x-ray was reviewed no complications. Is some atelectatic changes in the left lung base resume home medications hemodynamic and cardiac monitoring in addition to close neuro monitoring continue cefazolin Continue aspirin and Plavix High-dose statins with Lipitor Initiate metoprolol 12.5 mg twice a day Zestril 10 mg by mouth daily for blood pressure control Keep the patient ICU overnight and will continue to follow.
[2021-04-23] MEDS: METOPROLOL TARTRATE 12.5 MG TAB PO SCH (19:56)
[2021-04-23] MEDS: FLUTICASONE 44 MCG INHALER INHALATION SCH (20:28)
[2021-04-23] MEDS: HEPARIN SODIUM,PORCINE/PF 5,000 UNIT/0.5 ML SYRINGE SQ SCH (23:57)
[2021-04-24 04:59] LABS: Basophils % (A) 0 %; Eosinophils # (A) 0.1 k/uL (0-0.7); Eosinophils % (A) 1 %; HCT 35.1 % (34.0-46.0); HGB 11.2 gm/dL (11.4-16.0); Lymphocytes # (A) 0.8 k/uL (1.0-4.8); Lymphocytes % (A) 6 %; MCH 32.7 pg (25.0-35.0); MCV 102.2 fL (80.0-100.0); Macrocytosis Slight; Monocytes # (A) 1.1 k/uL (0-1.0); Monocytes % (A) 8 %; Neutrophils # (A) 11.2 k/uL (1.3-7.7); Neutrophils % (A) 83 %; Platelet Count 145 k/uL (150-450); RBC 3.44 m/uL (3.80-5.40); RDW 15.5 % (11.5-15.5); WBC 13.5 k/uL (3.8-10.6)
[2021-04-24 05:22] LABS: Ionized Calcium 4.7 mg/dL (4.5-5.3)
[2021-04-24 05:31] LABS: Albumin 3.2 g/dL (3.5-5.0); Calcium 8.7 mg/dL (8.4-10.2); Magnesium 1.8 mg/dL (1.6-2.3); Potassium 4.3 mmol/L (3.5-5.1); Total Bilirubin 0.5 mg/dL (0.2-1.3); Total Protein 6.3 g/dL (6.3-8.2)
[2021-04-24] MEDS: FLUTICASONE 44 MCG INHALER INHALATION SCH (06:01)
[2021-04-24] MEDS ORDERED: PANTOPRAZOLE 40 MG TABLET PO SCH (07:30)
--- NOTE | 2021-04-24 08:37 | XR ---
EXAMINATION TYPE: XR chest 1V portable DATE OF EXAM: 04/24/2021 HISTORY: Shortness of breath. COMPARISON: 04/23/2021 TECHNIQUE: Single view of the chest is submitted. FINDINGS: Demonstrated are scattered senescent parenchymal change. Improved aeration right lower lobe with resolution of atelectasis. The lungs are clear. The heart is stable. Hilar and mediastinal structures are within normal limits. Degenerative changes are seen of the dorsal spine. IMPRESSION: 1. Improved aeration right lower lobe with resolution of atelectasis. The lungs are clear.
[2021-04-24] MEDS ORDERED: CALCIUM CARB-VIT D 500 MG-5 MCG TAB PO SCH (09:00)
[2021-04-24] MEDS ORDERED: ASPIRIN 81 MG PO SCH ×2 (09:00)
[2021-04-24] MEDS ORDERED: ATORVASTATIN 40 MG TAB PO SCH (09:00)
[2021-04-24] MEDS ORDERED: MONTELUKAST 10 MG TAB PO SCH (09:00)
[2021-04-24] MEDS ORDERED: CLOPIDOGREL 75 MG TAB PO SCH (09:00)
[2021-04-24] MEDS ORDERED: METOPROLOL TARTRATE 12.5 MG TAB PO SCH (09:00)
[2021-04-24] MEDS ORDERED: MAGNESIUM HYDROXIDE 2,400 MG/10 ML CUP PO PRN (09:00)
[2021-04-24] MEDS ORDERED: MULTIVITAMINS, THERA 1 EACH TAB PO SCH (09:00)
[2021-04-24] MEDS ORDERED: lisinopriL 10 MG TAB PO SCH (09:00)
[2021-04-24] MEDS: METOPROLOL TARTRATE 12.5 MG TAB PO SCH (09:35)
[2021-04-24] MEDS: HEPARIN SODIUM,PORCINE/PF 5,000 UNIT/0.5 ML SYRINGE SQ SCH (09:35)
--- NOTE | 2021-04-24 11:31 | P.DS ---
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 Calcific bicuspid aortic valve stenosis 2. Hypertension 3. Dyslipidemia 4. Asthma 5. Rheumatoid arthritis 6. Questionable myocardial infarction in 2000 7. Osteoporosis 8. Family history of coronary artery disease less than 60 years of age PROCEDURE: 1. Percutaneous aortic valve implantation using a 29 mm Core Valve Evolute-Pro Plus under HERB and fluoroscopy guidance. 2. Transesophageal echocardiography performed by anesthesia. 3. Ultrasound-guided access and repair of right femoral artery access site by Perclose closure device. 4. Placement of temporary pacemaker wire. 5. Aortic root angiography. 6. Placement of the sentinel embolic protection device. HISTORY OF PRESENT ILLNESS: This is a 71-year-old female patient who follows with Dr. Rosalie Medellin for her primary care needs and Dr. ESPERANZA Coulter for her cardiology care. She has a known history of a childhood murmur and has been recently symptomatic with increased exertional dyspnea as well as fatigue over the past year. She had been referred to structural heart clinic for evaluation for transcatheter aortic valve replacement after her heart catheterization and transesophageal echocardiogram were completed. Echocardiography demonstrated normal left ventricular systolic function with EF 60%, questionable bicuspid extremely calcified aortic valve, trace aortic valve insufficiency, aortic valve V max of 4.67 m/s and a peak/mean gradient 87.54/56.03 mmHg. Heart catheterization showed nonobstructive coronary artery disease. After workup was completed STS risk score was calculated along with incremental risk and the pa tient was felt to be a high risk for surgical aortic valve replacement, therefore transcatheter aortic valve replacement was recommended. In the structural heart clinic the patient was evaluated by the structural heart team, treatment options including medical therapy, surgical aortic valve replacement, palliation and transcatheter aortic valve replacement were discussed. The structural heart team discussed intricacies of each approach and the rationale for considering one versus another. The usual course of TAVR was discussed in detail the patient, risks and benefits were reviewed, and the patient consented to proceed with the procedure. HOSPITAL COURSE: The patient was brought to the hospital on 04/23/21, taken to the extended stay area, prepared in the usual fashion, and subsequently taken to the cardiac catheterization laboratory where Dr. Roque and Dr. Spivey completed a TAVR procedure under general anesthesia with fluoroscopy and HERB. The valve was deployed under rapid ventricular pacing and proceeded without event. At the end of the procedure there was a mean gradient of 3.81 mmHg and a V max of 1.4 m/s, hemodynamics were felt to be excellent, and there is no evidence of perivalvular leak. Upon completion of the procedure the patient was extubated and was transferred to the cardiovascular intensive care unit where she was recovered and monitored hemodynamically. Her oxygen was titrated down, she was tolerating an oral diet, her pain was controlled, her follow-up TTE demonstrated a normal left ventricular systolic function with EF 55-60%, no aortic valve regurgitation, a mean gradient across the aortic valve 9.09 mmHg, subsequently she was ready to be discharged to home on postoperative day #1. She received written and verbal instruction regarding his medications, activity restrictions, signs and symptoms requiring physician notification, and follow-up appointments. Plan - Discharge Summary Discharge Rx Participant: No New Discharge Prescriptions: New Clopidogrel [Plavix] 75 mg PO DAILY #30 tab Acetaminophen Tab [Tylenol] 650 mg PO Q4HR PRN tab PRN Reason: Fever And/ Or Mild Pain (1-3) Continue Multivitamins, Thera [Multivitamin (formulary)] 1 tab PO DAILY Simvastatin [Zocor] 20 mg PO HS Omeprazole 20 mg PO DAILY Montelukast Chew [Singulair chew] 10 mg PO DAILY Meloxicam [Mobic] 7.5 mg PO WESA metHOTREXate sodium [Methotrexate] 10 mg PO SA Aspirin [Adult Low Dose Aspirin EC] 81 mg PO DAILY Albuterol Sulfate [Proair Hfa] 1 - 2 puff INHALATION Q6HR PRN PRN Reason: Shortness Of Breath CHLORPHEN-HYDROcod 8-10mg/5ml [Tussionex] 5 ml PO Q12HR PRN PRN Reason: Cough Calcium Carbonate/Vitamin D3 [Calcium 500 mg Chewable Tablet] 1 tab PO DAILY Fluticasone Propionate [Flovent Diskus] 2 puff INHALATION BID Benazepril [Lotensin] 10 mg PO DAILY Gabapentin [Neurontin] 100 mg PO BID PRN PRN Reason: Pain Alendronate Sodium [Fosamax] 70 mg PO Q7D Metoprolol Succinate (ER) [Toprol XL] 50 mg PO HS Discharge Medication List Meloxicam [Mobic] 7.5 mg PO WESA 01/07/16 [History] Montelukast Chew [Singulair chew] 10 mg PO DAILY 01/07/16 [History] Multivitamins, Thera [Multivitamin (formulary)] 1 tab PO DAILY 01/07/16 [History] Omeprazole 20 mg PO DAILY 01/07/16 [History] Simvastatin [Zocor] 20 mg PO HS 01/07/16 [History] metHOTREXate sodium [Methotrexate] 10 mg PO SA 01/07/16 [History] Aspirin [Adult Low Dose Aspirin EC] 81 mg PO DAILY 02/26/21 [History] Benazepril [Lotensin] 10 mg PO DAILY 02/26/21 [History] Albuterol Sulfate [Proair Hfa] 1 - 2 puff INHALATION Q6HR PRN 04/16/21 [History] Alendronate Sodium [Fosamax] 70 mg PO Q7D 04/16/21 [History] CHLORPHEN-HYDROcod 8-10mg/5ml [Tussionex] 5 ml PO Q12HR PRN 04/16/21 [History] Calcium Carbonate/Vitamin D3 [Calcium 500 mg Chewable Tablet] 1 tab PO DAILY 04/16/21 [History] Fluticasone Propionate [Flovent Diskus] 2 puff INHALATION BID 04/16/21 [History] Gabapentin [Neurontin] 100 mg PO BID PRN 04/16/21 [History] Metoprolol Succinate (ER) [Toprol XL] 50 mg PO HS 04/16/21 [History] Acetaminophen Tab [Tylenol] 650 mg PO Q4HR PRN tab 04/24/21 [Rx] Clopidogrel [Plavix] 75 mg PO DAILY #30 tab 04/24/21 [Rx] Follow up Appointment(s)/Referral(s): Lisa Coulter MD [STAFF PHYSICIAN] - 05/01/21 8:45 am (Your 05/01 appointment is for groin check; You also need to be seen 05/28/21 @ 2:45 pm in the office for 30 day post TAVR echocardiogram) Bob Cuevas, LELE [Nurse Practitioner] - 05/28/21 2:00 pm (You will be seen in the valve clinic in [facility] behind [facility], [address] before your echo appointment with Dr. Coulter) Rosalie Medellin DO [Primary Care Provider] - As Needed Activity/Diet/Wound Care/Special Instructions: DISCHARGE INSTRUCTIONS: 1. No driving for 1 week, or until physician gives their ok. 2. No lifting, pushing, or pulling more than 5-10 pounds for 1 week. 3. Hold both groins when you cough or sneeze for the next 2 weeks. Bruising is common, but report increased swelling, pain or fever >101F 4. Shower daily. No pool, hot tub, or bathtub for 1 week 5. No powders, lotions, ointments on incisions. 6. No straining, including for bowel movements. Use stool softner if necessary 7. Stairs are not an issue. Go slowly, using handrail and take 1 step at a time. Ambulate several times daily 8. Continue pain control per as needed orders. 9. Take only the medications listed on your discharge form 10. Eat low salt (limited to 2 grams or 2000 milligrams) daily, avoid adding salt, avoid canned/processed foods 11. Take your weight daily in the morning and record, bring with you to your follow up appointments 12. Keep all follow up appointments. You will need a valve clinic appointment at 30 days and 1 year post procedure for follow up 13. You have been referred to and are expected to begin Cardiac Rehab in approximately 4 weeks. 14. You will need antibiotics prior to any dental work, including cleanings, and any surgeries to prevent Endocarditis (bacterial infection in your heart) For any questions or concerns please call your valve coordinators: Shannon or Memo @ Discharge Disposition: HOME SELF-CARE
--- NOTE | 2021-04-24 12:06 | P.PN ---
Subjective Progress Note Date: 04/24/21 71-year-old here patient is currently in the ICU post TAVR procedure. The patient had history of bicuspid aortic valve stenosis and she was symptomatic and the patient accordingly underwent a TAVR procedure. The patient also had a sentinel cerebral protection system utilized due to her increased risk of having a CVA at time of the procedure. The procedure was performed under the care of Dr. Stacy and Dr. Spivey. Bilateral femoral artery percutaneous approach was utilized. During the procedure, a 22 mm cold valve was deployed, intraoperative HERB was done, ultrasound-guided access and repair of the right femoral artery access was performed by Perclose closure device, a temporary pacemaker was in serted and an aortic root angiography was also performed. The sentinel embolus protection device was also inserted. At this point in time, the patient extubated in the intensive care unit and she is calm and comfortable and she is on 2 L about 2 by nasal cannula with a pulse ox of 97%.. Blood work shows normal electrodes, normal renal function, hemoglobin is at 10.7 and the patient has a negative COVID-19 testing. The chest x-ray postprocedure showed no complications. The patient has a right lower lobe atelectasis. Scattered senescent parenchymal changes are also seen. On today's evaluation, 04/24/2021 patient seen in follow-up in intensive care unit, today is postoperative day #1, status post percutaneous transcatheter aortic valve replacement. Overnight patient has had no acute events, dynamically she stable, she is in sinus mechanism, is on 0.9 normal saline at rate of 20 ML per hour, she is on cefazolin for prophylaxis per CT surgery. She is breathing, we, lung sounds are clear, she is working on incentive spirometer, today's chest x-ray has been reviewed showing improved aeration at the right lower lobe with resolution of atelectasis. The lungs were clear, cardiogram has been completed, the report is pending. She is tolerating oral intake, no nausea vomiting. Objective - Vital Signs Vital signs: Vital Signs Temp 98.8 F 04/24/21 10:00 Pulse 76 04/24/21 10:00 Resp 16 04/24/21 10:00 BP 124/64 04/24/21 10:00 Pulse Ox 96 04/24/21 10:00 Intake & Output 04/23/21 04/24/21 04/24/21 18:59 06:59 18:59 Intake Total 370 150 100 Balance 370 150 100 Weight 66.6 kg 66.7 kg Intake: IV 370 50 0 Sodium Chloride 0.9% 1, 350 50 0 000 ml @ 50 mls/hr IV . Q20H CL[facility] Rx#:[id number] Intake, IV Titration 50 Amount ceFAZolin 2 gm In Sodium 50 Chloride 0.9% 50 ml @ 100 mls/hr IVPB Q8HR CL[facility] Rx# :[id number] Oral 50 100 Other: # Voids 2 1 1 ABP, PAP, CO, CI - Last Documented Arterial Blood Pressure 117/53 - Exam GENERAL EXAM: Alert, very pleasant, 71-year-old white female comfortable in no apparent distress. HEAD: Normocephalic/atraumatic. EYES: Normal reaction of pupils, equal size. Conjunctiva pink, sclera white. NOSE: Clear with pink turbinates. THROAT: No erythema or exudates. NECK: No masses, no JVD, no thyroid enlargement, no adenopathy. CHEST: No chest wall deformity. Symmetrical expansion. LUNGS: Equal air entry with no crackles, wheeze, rhonchi or dullness. CVS: Regular rate and rhythm, normal S1 and S2, no gallops, no murmurs, no rubs ABDOMEN: Soft, nontender. No hepatosplenomegaly, normal bowel sounds, no guarding or rigidity. EXTREMITIES: No clubbing, no edema, no cyanosis, 2+ pulses and upper and lower extremities. MUSCULOSKELETAL: Muscle strength and tone normal. SPINE: patient has kyphoscoliosis of the spine SKIN: No rashes CENTRAL NERVOUS SYSTEM: Alert and oriented -3. No focal deficits, tone is normal in all 4 extremities. PSYCHIATRIC: Alert and oriented -3. Appropriate affect. Intact judgment and insight. - Labs CBC & Chem 7: 04/24/21 04:32 04/24/21 04:32 Labs: Abnormal Lab Results - Last 24 Hours (Table) 04/15/21 04/23/21 04/23/21 Range/Units 10:57 11:37 11:37 WBC (3.8-10.6) k/uL RBC 3.24 L (3.80-5.40) m/uL Hgb 10.7 L D (11.4-16.0) gm/dL Hct 32.3 L (34.0-46.0) % MCV (80.0-100.0) fL Plt Count (150-450) k/uL Neutrophils # (1.3-7.7) k/uL Lymphocytes # 0.8 L (1.0-4.8) k/uL Monocytes # (0-1.0) k/uL Chloride 110 H (98-107) mmol/L Carbon Dioxide (22-30) mmol/L BUN 20 H (7-17) mg/dL Glucose 100 H (74-99) mg/dL POC Glucose (mg/dL) (75-99) mg/dL Calcium 8.1 L (8.4-10.2) mg/dL AST 37 H (14-36) U/L Total Protein 5.5 L (6.3-8.2) g/dL Albumin 2.7 L (3.5-5.0) g/dL Crossmatch See Detail 04/23/21 04/24/21 04/24/21 Range/Units 15:06 04:32 04:32 WBC 13.5 H (3.8-10.6) k/uL RBC 3.44 L (3.80-5.40) m/uL Hgb 11.2 L (11.4-16.0) gm/dL Hct (34.0-46.0) % MCV 102.2 H (80.0-100.0) fL Plt Count 145 L (150-450) k/uL Neutrophils # 11.2 H (1.3-7.7) k/uL Lymphocytes # 0.8 L (1.0-4.8) k/uL Monocytes # 1.1 H (0-1.0) k/uL Chloride 110 H (98-107) mmol/L Carbon Dioxide 20 L (22-30) mmol/L BUN 18 H (7-17) mg/dL Glucose 114 H (74-99) mg/dL POC Glucose (mg/dL) 127 H (75-99) mg/dL Calcium (8.4-10.2) mg/dL AST 40 H (14-36) U/L Total Protein (6.3-8.2) g/dL Albumin 3.2 L (3.5-5.0) g/dL Crossmatch Assessment and Plan Plan: Assessment: 1 TAVR postop day #1. The patient has symptomatically bicuspid aortic valve requiring a TAVR procedure through femoral artery percutaneous approach. The patient underwent intraoperative HERB, placement of a temporary pacemaker and aortic root angiography. [place] embolic protection device was also inserted. 2 chronic bronchial asthma currently inactive in stable 3 rheumatoid arthritis maintained on methotrexate on outpatient basis 4 hypertension 5 osteoporosis 6 history of coronary artery disease 7 hyperlipidemia Plan: No acute events overnight Vital signs are stable Patient is breathing comfortably, today's chest x-ray has been reviewed, lung sounds are clear Hemodynamically stable, in sinus mechanism Postoperative echocardiogram has been completed, Patient has completed prophylactic cefazolin Fever or chills, puncture sites are clean dry and intact Patient is up in the chair, tolerating activity well Discharge home is pending I performed a history & physical examination of the patient and discussed their management with my nurse practitioner, Juliette Lowery. I reviewed the nurse practitioner's note and agree with the documented findings and plan of care. Lung sounds are positive for diminished breath sounds The findings and the impression was discussed with the patient. I attest to the documentation by the nurse practitioner. Time with Patient: Less than 30
[2021-04-24 12:50] VITALS: TEMP 97.9
--- NOTE | 2021-04-24 13:30 | ECHOF ---
Referral Reason:post TAVR MEASUREMENTS -------- HEIGHT: 177.8 cm WEIGHT: 66.2 kg BP: IVSd: 1.3 cm (0.6 - 1.1) LVIDd: 3.9 cm (3.9 - 5.3) LVPWd: 1.2 cm (0.6 - 1.1) EDV(Teich): 65 ml IVSs: 1.8 cm LVIDs: 1.7 cm LVPWs: 2.0 cm %IVS Thck: 40 % ESV(Teich): 8 ml EF(Teich): 87 % %FS: 56 % SV(Teich): 56 ml RVIDd: 1.4 cm (< 3.3) IVC: 13.72 mm Ao Diam: 1.9 cm (2.0 - 3.7) LA Diam: 2.6 cm (2.7 - 3.8) AV Cusp: 1.2 cm (1.5 - 2.6) EPSS: 0.5 cm MV E Liborio: 0.80 m/s MV DecT: 156 ms MV Dec Comal: 5.2 m/s MV A Liborio: 1.15 m/s MV E/A Ratio: 0.70 MV PHT: 45 ms MV PHT: 45 ms MVA By PHT: 4.9 cm MV Vmax: 1.30 m/s MV Vmean: 0.82 m/s MV maxP.72 mmHg MV meanP.03 mmHg MV VTI: 29.7 cm MR Vmax: 1.46 m/s MR maxP.49 mmHg LVOT Vmax: 1.29 m/s LVOT maxP.69 mmHg LVOT Vmax: 1.35 m/s LVOT Vmean: 0.87 m/s LVOT maxP.26 mmHg LVOT meanP.68 mmHg LVOT Env.Ti: 272 ms LVOT VTI: 23.7 cm AV Vmax: 1.85 m/s AV maxP.74 mmHg AV Vmax: 1.97 m/s AV Vmean: 1.42 m/s AV maxP.48 mmHg AV meanP.09 mmHg AV Env.Ti: 221 ms AV VTI: 31.4 cm TR Vmax: 1.56 m/s TR maxP.77 mmHg RAP: 5.00 mmHg RVSP: 14.77 mmHg TV E Liborio: 0.43 m/s TV Dec Time: 126 ms TV Dec Comal: 3.4 m/s TV A Liborio: 0.57 m/s TV E/A Ratio: 0.75 MV EF SLOPE: 45.14 mm/s (70 - 150) MV EXCURSION: 10.41 mm (> 18.000) FINDINGS -------- This was a technically good study. The left ventricular size is normal. There is mild concentric left ventricular hypertrophy. Overa ll left ventricular systolic function is normal with, an EF between 55 - 60 %. The right ventricle is normal in size. The left atrial size is normal. The right atrial size is normal. There is no evidence of aortic regurgitation. The maximum velocity across the aortic valve is 1.97m /s. Peak/mean gradient across the Aortic Valve is 15.48mmHg / 9.09mmHg. TAVR procedure done The mitral valve is normal. There is trace mitral regurgitation. The tricuspid valve appears structurally normal. Trace tricuspid regurgitation present. Right claritza tricular systolic pressure is normal at < 35 mmHg. There is no pulmonic regurgitation present. The aortic root size is normal. Normal inferior vena cava with normal inspiratory collapse consistent with estimated right atrial pre ssure of 5 mmHg. There is no pericardial effusion. CONCLUSIONS -------- 1. The left ventricular size is normal. 2. There is mild concentric left ventricular hypertrophy. 3. Overall left ventricular systolic function is normal with, an EF between 55 - 60 %. 4. There is no evidence of aortic regurgitation. 5. The maximum velocity across the aortic valve is 1.97m/s. 6. Peak/mean gradient across the Aortic Valve is 15.48mmHg / 9.09mmHg. 7. TAVR procedure done 8. There is trace mitral regurgitation. 9. Trace tricuspid regurgitation present. 10. There is no pericardial effusion. COLLECTION SUPPORT SPECIALIST: Shannon Pond RDCS
[2021-04-24 13:40] VITALS: BMI 28.7
[2021-04-24 14:28] VITALS: BP 135/79; PULSE 96; RESP 22
[2021-04-26] MEDS ORDERED: metHOTREXate sodium 2.5 MG TAB PO SCH (09:00)
[2021-04-27] MEDS ORDERED: NON FORMULARY DRUG (Alendronate Sodium [Fosamax] 70 MG Tablet) PO SCH (09:00)
== END 2021-04-24 13:38 | disposition home or self-care (01) | DRG 267 ==
LOC: 2ORMAIN 06:42 → 2SICU 10:56
PROVIDERS: ADMIT Internal Medicine Interventional Cardiology; ATTEND Internal Medicine Interventional Cardiology
PROC: B246ZZ4 Ultrasonography of Right and Left Heart, Transesophageal (ICD-10-PCS; 2021-04-23)
PROC: B3101ZZ Fluoroscopy of Thoracic Aorta using Low Osmolar Contrast (ICD-10-PCS; 2021-04-23)
PROC: X2A5312 Cerebral Embolic Filtration, Dual Filter in Innominate Artery and Left Common Carotid Artery, Percutaneous Approach, New Technology Group 2 (ICD-10-PCS; 2021-04-23)
PROC: 5A1223Z Performance of Cardiac Pacing, Continuous (ICD-10-PCS; 2021-04-23)
PROC: 02RF38Z Replacement of Aortic Valve with Zooplastic Tissue, Percutaneous Approach (ICD-10-PCS; principal; 2021-04-23 09:00)
DX: Q23.1 Congenital insufficiency of aortic valve (principal); J98.11 Atelectasis; E78.5 Hyperlipidemia, unspecified; I10 Essential (primary) hypertension; I25.10 Atherosclerotic heart disease of native coronary artery without angina pectoris; I25.2 Old myocardial infarction; J45.909 Unspecified asthma, uncomplicated; M06.9 Rheumatoid arthritis, unspecified; M81.0 Age-related osteoporosis without current pathological fracture; Z20.822 Contact with and (suspected) exposure to COVID-19; Z79.51 Long term (current) use of inhaled steroids; Z79.82 Long term (current) use of aspirin; Z79.83 Long term (current) use of bisphosphonates; Z79.899 Other long term (current) drug therapy; Z82.49 Family history of ischemic heart disease and other diseases of the circulatory system
CPT/HCPCS: 33361; 71045; 80053; 82330; 83735; 85025; 85610; 85730; 86850; 86900; 86901; 86920; 87635; 93306; 93308; 93312; 93320; 93325; 94640

== ENCOUNTER → 2021-05-22 | Outpatient (CLI) | payer MEDICARE ==
[2021-05-22 19:17] LABS: Basophils # (A) 0.12 X 10*3/uL (0.00-0.10); Basophils % (A) 1.4 %; Eosinophils # (A) 1.11 X 10*3/uL (0.04-0.35); HCT 36.6 % (37.2-46.3); HGB 11.6 g/dL (12.0-15.0); Lymphocytes # (A) 1.04 X 10*3/uL (0.90-5.00); Lymphocytes % (A) 12.1 %; MCH 32.4 pg (27.0-32.0); MCHC 31.7 g/dL (32.0-37.0); MCV 102.2 fL (80.0-97.0); Mean Platelet Volume 10.1 fL (9.5-12.2); Monocytes # (A) 1.06 X 10*3/uL (0.20-1.00); Monocytes % (A) 12.4 %; Neutrophils # (A) 5.18 X 10*3/uL (1.80-7.70); Neutrophils % (A) 60.5 %; Platelet Count 250 X 10*3/uL (140-440); RBC 3.58 X 10*6/uL (4.10-5.20); RDW 15.5 % (11.5-14.5); WBC 8.56 X 10*3/uL (4.50-10.00)
[2021-05-23 00:16] LABS: ALT 15 U/L (8-44); AST 22 U/L (13-35); African American GFR (CKD) 51.9 (60.0-200.0); Albumin 4.1 g/dL (3.8-4.9); Albumin/Globulin Ratio 1.37 (1.60-3.17); Alkaline Phosphatase 74 U/L (41-126); BUN/Creat Ratio 20.08 Ratio (12.00-20.00); Blood Urea Nitrogen 24.1 mg/dL (9.0-27.0); Calcium 9.3 mg/dL (8.7-10.3); Carbon Dioxide 23.6 mmol/L (21.6-31.8); Chloride 103 mmol/L (96-109); Glucose 93 mg/dL (70-110); Non-African American GFR(CKD) 44.8 (60.0-200.0); Potassium 4.4 mmol/L (3.5-5.5); Sodium 138 mmol/L (135-145); Total Bilirubin <0.20 mg/dL (0.30-1.20); Total Protein 7.1 g/dL (6.2-8.2)
== END | disposition home or self-care (01) ==
LOC: LABWHC1 12:23
PROVIDERS: ATTEND Nurse Practitioner Family
DX: Z95.2 Presence of prosthetic heart valve (principal)
CPT/HCPCS: 36415; 80053; 85025

== ENCOUNTER → 2022-04-30 | Outpatient (CLI) | payer MEDICARE ==
[2022-04-30 12:09] LABS: HCT 39.4 % (34.0-46.0); HGB 12.9 gm/dL (11.4-16.0); Hypochromasia Slight; MCH 32.3 pg (25.0-35.0); MCHC 32.8 g/dL (31.0-37.0); MCV 98.7 fL (80.0-100.0); Macrocytosis Slight; Platelet Count 251 k/uL (150-450); RDW 14.6 % (11.5-15.5); WBC 7.2 k/uL (3.8-10.6)
[2022-04-30 12:17] LABS: African American GFR (CKD) 60 (>60 ml/min/1.73 sqM); Anion Gap 10 mmol/L; Blood Urea Nitrogen 29 mg/dL (7-17); Carbon Dioxide 27 mmol/L (22-30); Chloride 103 mmol/L (98-107); Glucose 74 mg/dL (74-99); Non-African American GFR(CKD) 52 (>60 ml/min/1.73 sqM); Sodium 140 mmol/L (137-145)
== END | disposition home or self-care (01) ==
LOC: LABWHC1 11:50
PROVIDERS: ATTEND Thoracic Surgery (Cardiothoracic Vascular Surgery)
DX: Z00.00 Encounter for general adult medical examination without abnormal findings (principal); Z95.2 Presence of prosthetic heart valve
CPT/HCPCS: 36415; 80048; 85027